=== PATIENT | female | born 1980 ===

== ENCOUNTER 2016-12-15 23:05 | Emergency (ER) | payer MEDICAID ==
[2016-12-15 23:54] VITALS: BMI 32.9
--- NOTE | 2016-12-20 15:26 | OBHP ---
Datetime: 12/15/2016 11:50 IP Adm Impression: , intrauterine ; No Active Labor IP Admit Plan: Observation/Evaluation Admit Comment, IP Provider: IUP @ 34.4w presents for pelvic pressure and cramp since 14:00 toda y. Patient also states she is concerned because she was told baby was transverse. Denies VB, LOF, CTX s, nausea or vomiting. Allergies: NKDA Meds: PNV OBhX: all . No . PNC up to date [facility] PMHx: denies SHx: denies tobacco, etoh or drugs PE: See above A: 36 y/o iup at 34.4w presents for evaluation of labor P: Observation monitoring Will revaluate Case evaluated with Dr Kay OBH ADDENDUM: pt seen _ examined with dr. castro. agree with above. Patient revaluated after 1 hour: No labor at this time Transverse presentation Reactive NST P: Discharge home F/U with PMD in 2-3 days Return to ED if VB, CTXs, LOF or any other concerns. Randy Castro PGY1 OBH ADDENDUM: Agree with above. Pt understands that if labor ensues this is considered and emergency she is at risk of uterine rup ture, cord prolapse and she is to come to hospitla immediately. Pt states she had been advised by her ob she will have a CD is fetus continues to be transverse. Pelvic Type - PN: Adequate Extremities - PN: Normal Abdomen - PN: Normal Back - PN: Normal Breast - PN: Normal Lungs - PN: Normal Heart - PN: Normal Thyroid - PN: Normal Neurologic - PN: Normal HEENT - PN: Normal General - PN: Normal Presentation-Admit: Transverse FHR - Baseline A Provider: 130 Comments, ACOG Physical Exam: VE done by Dr Kay: Int orif closed, thick, high Bedside US: Tranverse, Head left maternal side Gestation - Est Wks by US: 34.4 IP Hx Assessment: The History has been Reviewed and is Current Vital Signs Provider: Reviewed; Within Normal Limits IP Chief Complaint: Maternal discomfort NICHD Variability Prov Fetus A: Moderate 6-25bpm FHR Category Provider Fetus A: Category I NICHD Decel Fetus A IP Provider: None Dilatation, Provider: closed Effacement, Provider: thick Station, Provider: high Genitourinary Exam: Normal DTRs - PN: Normal
== END 2016-12-16 01:05 | disposition home or self-care (01) ==
LOC: H.EROB2 23:05
DX: O47.03 False labor before 37 completed weeks of gestation, third trimester (principal); Z3A.33 33 weeks gestation of pregnancy

== ENCOUNTER 2017-01-19 03:33 | Inpatient (IN) | payer MEDICAID ==
[2017-01-19 05:30] VITALS: BMI 36.9
[2017-01-19] MEDS ORDERED: Bupivacaine HCl 0.25% PF (10 ml) Inj ONE (05:51)
[2017-01-19] MEDS ORDERED: Fentanyl/Bupivacaine HCl 250 ML EPI ONE (05:51)
[2017-01-19 05:58] LABS: HEMATOCRIT 35.3 % (34.0-47.0); MEAN CELL VOLUME 80.4 fl (81.0-99.0); MEAN CORPUSCULAR HEMOGLOBIN 25.6 pg (27.0-31.0); MEAN CORPUSCULAR HGB CONC 31.9 g/dL (33.0-37.0); RED CELL DISTRIBUTION WIDTH 17.8 % (11.5-14.5)
[2017-01-19] MEDS ORDERED: Lactated Ringer's 1,000 ML IV SCH ×2 (06:00→07:15)
[2017-01-19 06:06] VITALS: BP 116/69; PULSE 100; RESP 18; TEMP 98.1; O2SAT 100
--- NOTE | 2017-01-19 08:26 | OBADHP ---
Datetime: 01/19/2017 05:31 FHR - Baseline A Provider: 140 Contraction Comments Provider: q2min NICHD Variability Prov Fetus A: Moderate 6-25bpm NICHD Accel Fetus A IP Provider: 15X15 FHR Category Provider Fetus A: Category I NICHD Decel Fetus A IP Provider: None Dilatation, Provider: 3 Effacement, Provider: 90 Station, Provider: -3 Datetime: 01/19/2017 04:11 Admit Comment, IP Provider: 36 yo , At 39.4 weeks GA with JESSE 01/22 presents to [facility] c/o uteri ne Ctx started today in the morning 1: 17AM every 13 min, 8/10 intensity, radiated to back, associate d with vaginal spotting small amount. Patient denies LOF, fever, dysuria, headache, N/V. Reports + FM . Prenatals in [facility], last visit last sunday. POBhx: x 5 PMHx: Asthma. AMA Allergies: Morphine. rash reacition Meds: PNV PSurgHx: none PShx: No ETOH, rect drugs, cig GBS: neg ABO-Rh: B+ Antibody: neg RPR: neg HIV: neg HBsAg: neg Rubella: immune GC/C: PPD: ? TDap: placed Flu: no Assessment/Plan:36 yo , At 39.4 weeks GA. Active Labor -Admit L _D -Continous monitoring -Iv Fluids -CBC type and screen Quinten Crow PGY1 Case discusse with Dr Sadler Pelvic Type - PN: Adequate Extremities - PN: Normal Abdomen - PN: Normal Back - PN: Normal Breast - PN: Normal Lungs - PN: Normal Heart - PN: Normal Thyroid - PN: Normal Neurologic - PN: Normal HEENT - PN: Normal General - PN: Normal Membranes, Provider: Intact Comments, ACOG Physical Exam: Us bedside: vertex Vital Signs Provider: Reviewed; Within Normal Limits IP Chief Complaint: Uterine contractions; Vaginal bleeding Genitourinary Exam: Normal DTRs - PN: Normal EGA AdmitDate IP: 39.4 IP Adm Impression: Term, intrauterine IP Admit Plan: Admit to unit; Initiate labor protocol; Observation/Evaluation Datetime: 12/15/2016 11:50 Presentation-Admit: Transverse Gestation - Est Wks by US: 34.4 IP Hx Assessment: The History has been Reviewed and is Current
--- NOTE | 2017-01-19 08:34 | OBDS ---
MATERNAL INFORMATION Provider Comments: Normal spontaneous vaginal delivery. Viable infant male with Apgars of 9 and 9 at one and 5 minutes respectively. delivered via position. Perineum intact, no lacerations. Placenta delivered spontaneously. Uterus firm and appropri ately hemostatic following delivery. Patient tolerated delivery well. medications. EBL 200 mL LABOR SUMMARY EDC: 01/22/2017 00:00 No. Babies in Womb: 1 LABOR INFORMATION Group B Beta Strep: Negative VAGINAL DELIVERY Episiotomy: None Laceration Extension: N/A Laceration Type: None Laceration Repair: Not Applicable
[2017-01-19] MEDS ORDERED: Oxycodone/Acetaminophen 5/325 mg Tab PO PRN ×2 (11:13→12:17)
[2017-01-20 07:47] LABS: HEMATOCRIT 33.4 % (34.0-47.0); MEAN CELL VOLUME 80.6 fl (81.0-99.0); MEAN CORPUSCULAR HEMOGLOBIN 26.1 pg (27.0-31.0); MEAN CORPUSCULAR HGB CONC 32.4 g/dL (33.0-37.0); RED CELL DISTRIBUTION WIDTH 17.9 % (11.5-14.5); WHITE BLOOD COUNT 13.2 K/uL (4.8-10.8)
[2017-01-20] MEDS: Multivitamin With Minerals Tab PO SCH (08:16)
[2017-01-20] MEDS ORDERED: Multivitamin With Minerals Tab PO SCH (09:00)
--- NOTE | 2017-01-20 13:04 | OBPPN ---
Datetime: 01/20/2017 07:16 PP Pain Prov: Within normal limits PP Nausea Prov: Denies PP Flatus Prov: Yes PP BM Prov: Yes PP Breasts Prov: Normal PP Heart Prov: Normal PP Lungs Prov: Normal PP Abdomen/Uterus Prov: Normal PP Lochia Prov: Normal PP Vulva/Perineum Prov: Normal PP CVA Tenderness Prov: Normal PP Extremities Prov: Normal PP C/S Incision Prov: Not Applicable PP Progress Prov: Normal PP Comments Phys Exam Prov: uterus: firm below umbilicus PP Impression Prov: Normal progression PP Plan Prov: Continue present management PP Progress Note Prov: 36 y/o seen and examined at bedside. Patient had uneventful overnight . Patient reports mild pelvic pain controlled w/ pain meds. OOB/Ambulating w/o dizziness.breastfeed ing and bottle feeding baby..Tolerating PO diet well. Lochia is less than menses in volume. Voiding freely w/ no blood noted. Reports + flatus and 1 bowel movement yesterday noon . Denies fevers, c hills, n/v/d, CP/SOB, lightheadedness and calf pain Assessment: 36 y/o s/p 01/19/17 @ 7:58 AM tolerating pain w/ medication, tolerating o ral intake, adequate urine output, doing well on PPD1. Plan: - Ibuprofen 600 mg 1 tab Q6h PO prn for mild pain. -Encourage breast feeding and ambulation. Quinten Crow PGY1 OBH ADDENDUM: PT seen _ examined by me. agree w/ assessment and plan. Vital Signs Provider PP: Reviewed; Within Normal Limits
[2017-01-21] MEDS: Multivitamin With Minerals Tab PO SCH (08:20)
--- NOTE | 2017-01-21 10:33 | OBPPN ---
Datetime: 01/21/2017 09:43 PP Pain Prov: Within normal limits PP Nausea Prov: Denies PP Flatus Prov: Yes PP BM Prov: Yes PP Heart Prov: Normal PP Lungs Prov: Normal PP Abdomen/Uterus Prov: Normal PP Lochia Prov: Normal PP Extremities Prov: Normal PP Impression Prov: Normal progression PP Plan Prov: Discharge PP Progress Note Prov: PPD2 Patient feeling well. She denies nausea, vomiting. Passing flatus, +BM. Breast and bottle feeding without difficulty. A:PPD2 s/p , with normal post progression P:pain control, encouraged ambulation. discharge home rx motrin in chart Lissa PGY1 Patient seen with the resident I agree with the note. The patient is cleared for discharge Vital Signs Provider PP: Reviewed
--- NOTE | 2017-01-21 10:40 | OBDCSUM ---
Datetime: 12/16/2016 00:54 Discharge Instructions, Provider: Routine instructions given Discharge Diagnosis, Provider: Term Delivered Contraception discussed, Prov: Yes Discharge Comment, Provider: Patient cleared for discharge
== END 2017-01-21 13:25 | disposition home or self-care (01) | DRG 373 ==
LOC: H.EROB2 03:33 → H.L&D 05:48 → H.OB/GYN 12:00
PROVIDERS: ADMIT Obstetrics & Gynecology; ATTEND Obstetrics & Gynecology
PROC: 10E0XZZ Delivery of Products of Conception, External Approach (ICD-10-PCS; principal; 2017-01-19)
PROC: 4A1HXCZ Monitoring of Products of Conception, Cardiac Rate, External Approach (ICD-10-PCS; 2017-01-19)
DX: O99.52 Diseases of the respiratory system complicating childbirth (principal); J45.909 Unspecified asthma, uncomplicated; Z37.0 Single live birth; Z3A.39 39 weeks gestation of pregnancy

== ENCOUNTER 2017-03-04 11:45 | Emergency (ER) | payer MEDICAID ==
[2017-03-04 11:46] VITALS: BMI 36.9
[2017-03-04 11:55] VITALS: BP 132/83; PULSE 69; TEMP 98.7
[2017-03-04 12:11] VITALS: RESP 14; O2SAT 99
--- NOTE | 2017-03-04 12:36 | ED PDOC ---
Lower Extremity Pain/Injury Time Seen by Provider: 03/04/17 12:34 Chief Complaint (Nursing): Lower Extremity Problem/Injury Chief Complaint (Provider): LEFT LEG PAIN History Per: Patient (36 Y/O FEMALE 40 DAYS AGO HERE WITH LEFT LEG WEAKNESS/PAIN SINCE EPIDURAL AT THAT TIME. DENIES ANY FEVERS OR CHILLS. HAS HAD PAIN IN BILATERAL WRISTS WELL WITH DIFFICULTY LIFTNG BABY. DENIES ANY NECK PAIN. DENIES ANY PRIOR H/O SIMILAR SYMPTOMS.) Past Medical History Reviewed: Historical Data, Nursing Documentation, Vital Signs Vital Signs: Last Vital Signs Temp 98.7 F 03/04/17 12:06 Pulse 69 03/04/17 12:06 Resp 14 03/04/17 12:06 BP 132/83 03/04/17 12:06 Pulse Ox 99 03/04/17 12:06 - Medical History PMH: Asthma, HTN - Family History Family History: States: Unknown Family Hx - Immunization History Hx Tetanus Toxoid Vaccination: No Hx Influenza Vaccination: No Hx Pneumococcal Vaccination: No - Home Medications Home Medications: Ambulatory Orders Medication Instructions Recorded Albuterol HFA [Ventolin HFA 90 2 puff IH Q4H #1 puff 04/03/16 mcg/actuation (8 g)] Vit Calc,Iron,Folic 1 tab PO DAILY 01/19/17 [ Vitamins] Ibuprofen [Motrin Tab] 600 mg PO Q6 PRN #20 tab 01/21/17 Acetaminophen [Acetaminophen Extra 2 tab PO Q6 PRN #24 tablet 03/04/17 Strength] - Allergies Allergies/Adverse Reactions: Allergies Allergy/AdvReac Type Severity Reaction Status Date / Time morphine Allergy SHORTNESS Verified 01/19/17 05:14 OF BREATH Review of Systems ROS Statement: Except As Marked, All Systems Reviewed And Found Negative Physical Exam - Reviewed Nursing Documentation Reviewed: Yes Vital Signs Reviewed: Yes - Physical Exam Appears: Positive for: Well, Non-toxic, No Acute Distress Head Exam: Positive for: ATRAUMATIC, NORMAL INSPECTION, NORMOCEPHALIC Skin: Positive for: Normal Color, Warm, DRY Eye Exam: Positive for: EOMI, Normal appearance, PERRL ENT: Positive for: Normal ENT Inspection Neck: Positive for: Normal, Painless ROM Cardiovascular/Chest: Positive for: Regular Rate, Rhythm Respiratory: Positive for: CNT, Normal Breath Sounds Gastrointestinal/Abdominal: Positive for: Normal Exam, Bowel Sounds, Soft Back: Positive for: Normal Inspection Extremity: Positive for: Normal ROM, Tenderness (WRIST: TENDERNESS NOTED BILATERAL THUMBS AND RADIAL ASPECT OF WRIST.), Other (DECREASED STRENGTH LEFT LEG WITH LEG EXTENSION AND LIFTING OF THIGH 4/5. DECREASED SENSATION NOTED BY PATIENT LATERAL ASPECT OF LEFT LEG AND DORSUM OF FOOT.) Neurologic/Psych: Positive for: Alert, Oriented - ECG O2 Sat by Pulse Oximetry: 99 Medical Decision Making Medical Decision Making: Spoke with my attending, Dr. Michaels, who recommended a CT of the lumbar spine and a neurology consult. 14:21 CT lumbar spine FINDINGS: VERTEBRAE: Unremarkable. No fracture. Normal alignment. DISCS/SPINAL CANAL/NEURAL FORAMINA: L1-2: Disc space height maintained. No disc herniation or significant disc bulge. Central canal and exit foramina adequate. L2-3: Disc space height maintained. No disc herniation or significant disc bulge. Central canal and exit foramina appear adequate L3-4: Disc space height maintained. Minimal bulge of the posterior annulus centrally however slightly more prominent disc bulging within the proximal inferior margins of both exit foramina. . No evidence of canal nor foraminal compromise. . L4-5: Disc space height maintained. Minor of broad-based disc bulging reaches the ventral surfaces of the thecal sac without canal nor foraminal compromise. L5-S1: Small central and bilateral disc bulge slightly larger on the left than right. The disc reaches and may minimally posteriorly displaces the descending S1 nerve roots more so on the left side. Central canal and exit foramina appear adequate. . PARASPINAL SOFT TISSUES: Paraspinal soft tissues unremarkable. OTHER FINDINGS: None. IMPRESSION: No acute fractures. Very minor multilevel disc bulging changes most pronounced at the L5-S1 level. No evidence of significant canal nor foraminal compromise 14:35 Call placed for neurology consult. Disposition - Clinical Impression Clinical Impression: Sciatica - Patient ED Disposition Is Patient to be Admitted: No - Disposition Referrals: [facility] [Outside] Gilda Ho MD [Staff Provider] - Disposition: Routine/Home Disposition Time: 14:40 Condition: FAIR Prescriptions: Acetaminophen [Acetaminophen Extra Strength] 2 tab PO Q6 PRN #24 tablet PRN Reason: Pain, Moderate (4-7) Instructions: Sciatica (ED), Tendinitis (ED) Print Language: PERSIAN
--- NOTE | 2017-03-04 14:23 | CT ---
PROCEDURE: CT Lumbar Spine without contrast HISTORY: SCIATICA/DECREASED STRENGTH COMPARISON: None. TECHNIQUE: Axial computed tomography images were obtained of the lumbar spine without the use of intravenous contrast. Coronal and sagittal reformatted images were created and reviewed. Radiation dose: Total exam DLP = 1027.09 mGy-cm. This CT exam was performed using one or more of the following dose reduction techniques: Automated exposure control, adjustment of the mA and/or kV according to patient size, and/or use of iterative reconstruction technique. FINDINGS: VERTEBRAE: Unremarkable. No fracture. Normal alignment. DISCS/SPINAL CANAL/NEURAL FORAMINA: L1-2: Disc space height maintained. No disc herniation or significant disc bulge. Central canal and exit foramina adequate. L2-3: Disc space height maintained. No disc herniation or significant disc bulge. Central canal and exit foramina appear adequate L3-4: Disc space height maintained. Minimal bulge of the posterior annulus centrally however slightly more prominent disc bulging within the proximal inferior margins of both exit foramina. . No evidence of canal nor foraminal compromise. . L4-5: Disc space height maintained. Minor of broad-based disc bulging reaches the ventral surfaces of the thecal sac without canal nor foraminal compromise. L5-S1: Small central and bilateral disc bulge slightly larger on the left than right. The disc reaches and may minimally posteriorly displaces the descending S1 nerve roots more so on the left side. Central canal and exit foramina appear adequate. . PARASPINAL SOFT TISSUES: Paraspinal soft tissues unremarkable. OTHER FINDINGS: None. IMPRESSION: No acute fractures. Very minor multilevel disc bulging changes most pronounced at the L5-S1 level. No evidence of significant canal nor foraminal compromise
--- NOTE | 2017-03-04 17:31 | RAD ---
PROCEDURE: Bilateral wrist 03/04/2017 HISTORY: BILATERAL WRIST PAIN COMPARISON: No prior study available comparison. TECHNIQUE: Three standard views of the right and left wrists were performed. FINDINGS: The current study reveals no evidence of acute displaced fracture nor dislocation. The osseous structures appear intact. No cortical destructive changes. Joint spaces preserved. There appears to be a small benign elliptical shape cyst within the right scaphoid. Soft tissues grossly unremarkable. If pain persists, consider follow-up MRI IMPRESSION: No acute fractures. Suspect small benign cyst within the right scaphoid.
== END 2017-03-04 15:20 | disposition home or self-care (01) ==
LOC: H.ER 11:45
DX: M54.32 Sciatica, left side (principal); M25.531 Pain in right wrist; M25.532 Pain in left wrist

== ENCOUNTER 2018-03-07 21:08 | Emergency (ER) | payer SELFPAY ==
[2018-03-07 21:08] VITALS: BMI 36.9
[2018-03-07] MEDS ORDERED: Sodium Chloride 0.9% 1,000 ML IV STA (22:05)
[2018-03-07 22:28] LABS: BASO % 0.9 % (0.0-2.0); EOS % 0.2 % (0.0-4.0); HEMOGLOBIN 14.2 g/dL (12.0-16.0); LYMPH % 30.1 % (20.0-40.0); MEAN CELL VOLUME 84.7 fl (81.0-99.0); MEAN CORPUSCULAR HEMOGLOBIN 28.3 pg (27.0-31.0); MEAN CORPUSCULAR HGB CONC 33.4 g/dL (33.0-37.0); MEAN PLATELET VOLUME 8.9 fl (7.2-11.7); MONO # 0.5 K/uL (0.0-0.8); NEUT # 1.8 K/uL (1.8-7.0); NEUT % 54.8 % (50.0-75.0); NRBC % 0.1 % (0.0-0.0); RBC 5.03 Mil/uL (3.80-5.20)
--- NOTE | 2018-03-07 22:30 | ED PDOC ---
HPI: Fever Additional Comments: Patient reports one day of tactile fever associated with headache, nausea, and a painful small ball in her right groin. Patient admits to dull constant suprapubic pain since Sunday. Patient denies any exacerbating or alleviating factors. Otherwise: (-) cough, (-) sore throat, (-) URI symptoms , (-) rash, (-) SOB, (-) chest pain, (-) vomiting, (-) diarrhea, (-) flank pain , (-) urinary symptoms, (-) recent travel, (-) sick contacts (-) vaginal discharge, (-) vaginal bleeding, (-) sexual activity. Past Medical History Reviewed: Historical Data, Nursing Documentation, Vital Signs Vital Signs: Last Vital Signs Temp 99.1 F 03/07/18 21:11 Pulse 94 H 03/07/18 21:11 Resp 16 03/07/18 21:11 BP 123/81 03/07/18 21:11 Pulse Ox 98 03/07/18 22:36 - Medical History PMH: Asthma, HTN - Surgical History Surgical History: No Surg Hx - Family History Family History: States: Unknown Family Hx - Immunization History Hx Tetanus Toxoid Vaccination: No Hx Influenza Vaccination: No Hx Pneumococcal Vaccination: No - Home Medications Home Medications: Ambulatory Orders Medication Instructions Recorded Albuterol HFA [Ventolin HFA 90 2 puff IH Q4H #1 puff 04/03/16 mcg/actuation (8 g)] Vit Calc,Iron,Folic 1 tab PO DAILY 01/19/17 [ Vitamins] Ibuprofen [Motrin Tab] 600 mg PO Q6 PRN #20 tab 01/21/17 Acetaminophen [Acetaminophen Extra 2 tab PO Q6 PRN #24 tablet 03/04/17 Strength] - Allergies Allergies/Adverse Reactions: Allergies Allergy/AdvReac Type Severity Reaction Status Date / Time morphine Allergy SHORTNESS Verified 01/19/17 05:14 OF BREATH Review of Systems ROS Statement: Except As Marked, All Systems Reviewed And Found Negative Constitutional: Positive for: Fever (tactile) ENT: Negative for: Throat Pain Gastrointestinal: Positive for: Nausea, Abdominal Pain (dull constant suprapubic pain). Negative for: Vomiting, Diarrhea Genitourinary Female: Positive for: Other (painful small ball in right groin area). Negative for: Dysuria, Frequency, Incontinence, Hematuria, Vaginal Discharge, Vaginal Bleeding Skin: Negative for: Rash Neurological: Positive for: Headache Physical Exam - Reviewed Nursing Documentation Reviewed: Yes Vital Signs Reviewed: Yes - Physical Exam Comments: GENERAL APPEARANCE: Patient is awake, alert, oriented x 3, in no acute distress. SKIN: Warm, dry; (-) cyanosis, (-) rash. EYES: (-) conjunctival pallor, (-) scleral icterus, (-) conjunctival hemorrhage. ENMT: Mucous membranes moist. TMs: (-) erythema. Airway patent: (-) stridor. Pharynx: (-) erythema, (-) exudate. NECK: (-) tenderness, (-) stiffness, (-) meningismus, (-) lymphadenopathy. ABDOMEN AND GI: Soft, (-) abdominal tenderness; (+) non-tender mobile right inguinal lymphadenopathy, (-) guarding; (-) organomegaly; (-) mass; (-) CVA tenderness. PELVICC : Normal external genitalia, (-) rash/lesions, (-0 discharge, (-) bleeding, (-) CMT, (-) adnexal tenderness. EXTREMITIES: (-) deformity; (-) cellulitis, (-) lymphangitis; (-) edema. NEURO AND PSYCH: Mental status as above; (-) focal findings. - Laboratory Results Result Diagrams: 03/07/18 22:20 03/07/18 22:20 - ECG O2 Sat by Pulse Oximetry: 98 (RA) Pulse Ox Interpretation: Normal Medical Decision Making Medical Decision Making: Time: 2219 Rule Out: UTI, Consider PID Plan: -- CMP -- Lipase -- CBC with differentials -- Sodium Chloride 1000 mls/hr -- Toradol 30 mg IVP -- Zofran 4 mg IVP -- IV Insertion -- Urinalysis uhcg (-) Labs reviewed and wnl UA (-) for infection On further questioning, the patient reports that the last time she was sexually active was 1 week ago. 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 Pelvic exam performed by MAREK, which was normal, see physical exam. On re-evaluation, patient reports no worsening symptoms, has no other complaints. On exam, patient remains AAOx3, in no acute distress. Diagnostic results d/w the patient in great detail. Based on history, exam and diagnostic results, plan will be for outpatient follow up. Patient instructed to follow-up with your federal aid coordinator in 1-2 days without fail. Return to the emergency room at any time for any new or worsening symptoms. Patient states she fully agrees with and understands discharge instructions. States that she agrees with the plan and disposition. Verbalized and repeated discharge instructions and plan. I have given the patient opportunity to ask any additional questions. Scribe Attestation: Documented by Nathalia Lagos, acting as a scribe for Lotus Cast PA-C. Provider Scribe Attestation: All medical record entries made by the Scribe were at my direction and personally dictated by me. I have reviewed the chart and agree that the record accurately reflects my personal performance of the history, physical exam, medical decision making, and the department course for this patient. I have also personally directed, reviewed, and agree with the discharge instructions and disposition. Disposition - Clinical Impression Clinical Impression: Fever, Inguinal lymphadenopathy - Patient ED Disposition Is Patient to be Admitted: No - Disposition Referrals: [facility] [Outside] Disposition: Routine/Home Disposition Time: 00:00 Condition: STABLE Additional Instructions: Thank you for letting us take care of you today. You were treated for fever, inguinal lymphadenopathy. The emergency medical care you received today was directed at your acute symptoms. Return to the Emergency Department if your symptoms worsen, do not improve, or if you have any other problems. Please call one of the physicians/clinics you have been referred to that are listed on the Patient Visit Information form that is included in your discharge packet. Bring any paperwork you were given at discharge with you along with any medications you are taking to your follow up visit. Our treatment cannot replace ongoing medical care by a primary care provider (PCP) outside of the emergency department. Thank you for allowing the [facility] team to be part of your care today Instructions: When to Worry About a Fever Forms: [employer] (Wolof) Print Language: HONDURAN - PA / FLORIST MANAGER / Resident Statement MD/DO has reviewed & agrees with the documentation as recorded.
[2018-03-07 22:39] LABS: ALBUMIN 4.1 g/dL (3.5-5.0); ALT/SGPT 42 U/L (9-52); AST/SGOT 35 U/L (14-36); BLOOD UREA NITROGEN 9 mg/dl (7-17); CALCIUM 8.9 mg/dL (8.4-10.2); GFR AFRICAN-AMERICAN > 60; GFR NON-AFRICAN AMERICAN > 60; LIPASE 86 U/L (23-300)
[2018-03-07 22:41] LABS: WHITE BLOOD COUNT 3.3 K/uL (4.8-10.8)
[2018-03-07 22:44] LABS: SQUAMOUS EPITHIAL 3 /hpf (0-5); URINE BACTERIA RARE (<OCC); URINE BILIRUBIN NEGATIVE (NEGATIVE); URINE BLOOD NEGATIVE (NEGATIVE); URINE CLARITY SLIGHTY-CLOUDY (Clear); URINE COLOR YELLOW (YELLOW); URINE GLUCOSE (UA) NEG (Normal); URINE LEUKOCYTE ESTERASE NEG Leu/uL (Negative); URINE PROTEIN NEGATIVE (NEGATIVE); URINE UROBILINOGEN 0.2-1.0 mg/dL (0.2-1.0)
[2018-03-08 00:54] VITALS: RESP 17
[2018-03-08 00:56] VITALS: BP 126/75; PULSE 84; TEMP 98.4
[2018-03-08 03:32] VITALS: O2SAT 98
== END 2018-03-08 00:54 | disposition home or self-care (01) ==
LOC: H.ER 21:08
DX: R50.9 Fever, unspecified (principal); L04.1 Acute lymphadenitis of trunk; I10 Essential (primary) hypertension
CPT/HCPCS: 80053; 81003; 81025; 83690; 85025; 87086; 87491; 87591; 96374; 96375; 99284; J1885; J2405; J7030

== ENCOUNTER 2018-03-10 08:44 | Emergency (ER) | payer OTHER ==
[2018-03-10 08:44] VITALS: BMI 36.9
[2018-03-10 09:23] VITALS: BP 121/82; RESP 18; TEMP 99.2; O2SAT 98
--- NOTE | 2018-03-10 10:02 | ED PDOC ---
HPI: CCC, URI, Sore Throat Time Seen by Provider: 03/10/18 09:17 Chief Complaint (Nursing): Headache History Per: Patient (this is a 37 yo lady who is here because fever sinced Father's day who has had mild headache and diffuse joint pains as well. She also has a sore throat and is concerned about a bug bite on her leg that is red and painful. She has not seen a doctor and has not taken any meds for this. ) Past Medical History Reviewed: Historical Data, Nursing Documentation, Vital Signs Vital Signs: Last Vital Signs Temp 99.2 F 03/10/18 09:01 Pulse 105 H 03/10/18 09:01 Resp 18 03/10/18 09:01 BP 121/82 03/10/18 09:01 Pulse Ox 98 03/10/18 09:01 - Medical History PMH: Asthma, HTN - Family History Family History: States: Unknown Family Hx - Living Arrangements Living Arrangements: With Family - Immunization History Hx Tetanus Toxoid Vaccination: No Hx Influenza Vaccination: No Hx Pneumococcal Vaccination: No - Home Medications Home Medications: Ambulatory Orders Medication Instructions Recorded Albuterol HFA [Ventolin HFA 90 2 puff IH Q4H #1 puff 04/03/16 mcg/actuation (8 g)] Vit Calc,Iron,Folic 1 tab PO DAILY 01/19/17 [ Vitamins] Ibuprofen [Motrin Tab] 600 mg PO Q6 PRN #20 tab 01/21/17 Acetaminophen [Acetaminophen Extra 2 tab PO Q6 PRN #24 tablet 03/04/17 Strength] Sulfamethoxazole/Trimethoprim 1 tab PO BID #14 tab 03/10/18 [Bactrim DS 800 mg-160 mg] - Allergies Allergies/Adverse Reactions: Allergies Allergy/AdvReac Type Severity Reaction Status Date / Time morphine Allergy SHORTNESS Verified 03/10/18 09:17 OF BREATH Review of Systems ROS Statement: Except As Marked, All Systems Reviewed And Found Negative Constitutional: Positive for: Fever, Chills, Malaise Gastrointestinal: Negative for: Nausea, Vomiting, Abdominal Pain Musculoskeletal: Positive for: Other (joint pain - symmetric and multiple ) Skin: Positive for: Lesions Physical Exam - Reviewed Nursing Documentation Reviewed: Yes Vital Signs Reviewed: Yes - Physical Exam Appears: Positive for: Well, Non-toxic, No Acute Distress Head Exam: Positive for: ATRAUMATIC, NORMAL INSPECTION, NORMOCEPHALIC Skin: Positive for: Normal Color, Warm, Rash (single lesion on distal thigh scabbed over with surrounding erythema and tenderness) Eye Exam: Positive for: Normal appearance, EOMI ENT: Positive for: Normal ENT Inspection Neck: Positive for: Normal, Painless ROM Cardiovascular/Chest: Positive for: Regular Rate, Rhythm Respiratory: Positive for: CNT, Normal Breath Sounds Gastrointestinal/Abdominal: Positive for: Normal Exam, Soft Back: Positive for: Normal Inspection Extremity: Positive for: Normal ROM Neurologic/Psych: Positive for: Alert, Oriented - ECG O2 Sat by Pulse Oximetry: 98 Disposition - Clinical Impression Clinical Impression: Viral illness, Carbuncle - Patient ED Disposition Is Patient to be Admitted: No Doctor Will See Patient In The: Office Counseled Patient/Family Regarding: Diagnosis, Need For Followup, Rx Given - Disposition Referrals: [facility] [Outside] Disposition: Routine/Home Disposition Time: 10:05 Condition: STABLE Prescriptions: Sulfamethoxazole/Trimethoprim [Bactrim DS 800 mg-160 mg] 1 tab PO BID #14 tab Instructions: Boil Print Language: SYRIAC
[2018-03-10 10:23] VITALS: PULSE 87
== END 2018-03-10 10:25 | disposition home or self-care (01) ==
LOC: H.ER 08:44
DX: B34.9 Viral infection, unspecified (principal); I10 Essential (primary) hypertension; L02.93 Carbuncle, unspecified